=== PATIENT | male | born 1940 | race Caucasian/White ===

== ENCOUNTER 2017-04-05 09:49 | Day surgery (SDC) | payer MEDICARE ==
[~2017-04-05] VITALS: Ht 175.3 cm; Wt 94.5 kg
[2017-04-05] VITALS (8 sets, daily range): BP systolic 116–150; BP diastolic 74–89; PULSE 65–78; RESP 20; TEMP 97.6–97.7; O2SAT 96–98
[2017-04-05] MEDS ORDERED: SODIUM CHLOR 0.9% 1000 ML IV SCH (10:00)
[2017-04-05] MEDS ORDERED: CAPE1TAB2 PO (10:13)
[2017-04-05] MEDS ORDERED: LEVO125T4 PO (10:13)
[2017-04-05] MEDS ORDERED: AMLO5TAB2 PO (10:13)
[2017-04-05] MEDS ORDERED: VITA1000 PO (10:13)
[2017-04-05] MEDS ORDERED: METO25TA3 PO (10:13)
[2017-04-05] MEDS ORDERED: SIMV10TA PO (10:13)
[2017-04-05 10:45] LABS: AUTOMATED NEUTROPHIL # 3.5 TH/MM3 (1.8-7.7); BASOPHIL % 0.5 % (0.0-2.0); EOSINOPHIL # 0.1 TH/MM3 (0-0.4); EOSINOPHIL % 2.3 % (0.0-4.0); HEMATOCRIT 40.4 % (39.0-51.0); HEMO FLAGS DIFF FINAL; LYMPH % 28.1 % (9.0-44.0); LYMPHOCYTE # 1.7 TH/MM3 (1.0-4.8); MEAN CORPUSCULAR HEMOGLOBIN 31.1 PG (27.0-34.0); MEAN CORPUSCULAR HGB CONC 33.5 % (32.0-36.0); MONO % 10.3 % (0.0-8.0); NEUT % 58.8 % (16.0-70.0); PLATELET COUNT 141 TH/MM3 (150-450); RED BLOOD COUNT 4.35 MIL/MM3 (4.50-5.90); RED CELL DISTRIBUTION WIDTH 15.7 % (11.6-17.2)
[2017-04-05 11:16] LABS: APTT (PATIENT) 26.9 SEC (24.3-30.1); INTERNATIONAL NORMALIZED RATIO 0.9 RATIO
[2017-04-05] MEDS ORDERED: LIDOCAINE 1%/EPINEPHrine 1:100,000 SOLN 20 ML VIAL ONE (13:22)
[2017-04-05] MEDS ORDERED: MIDAZOLAM HCL 5 MG/5 ML VIAL ONE (13:29)
[2017-04-05] MEDS ORDERED: fentaNYL CITRATE 250 MCG/5 ML AMP ONE (13:29)
[2017-04-05] MEDS ORDERED: ceFAZolin 2 GM PREMIX 50 ML ONE (14:11)
--- NOTE | 2017-04-05 14:20 | PD.RAD ---
Post CT Procedure Prog Note Pre Procedure Diagnosis: (1) Metastases to the liver Post Procedure Diagnosis: (1) Metastases to the liver Procedure Date: Apr 05, 2017 Supervising Radiologist: Red Mejia Anesthesia: Conscious Sedation Plan of Activity Patient to Unit: ROPU Patient Condition: Good Additional Comments: placed fiducial makers neardominant mass in liver See PACS Report for procedural detail/treatment Red Mejia MD Apr 05, 2017 14:19
--- NOTE | 2017-04-05 14:48 | RADRPT ---
EXAM DATE/TIME: 04/05/2017 13:39 [facility] COMPARISON: No previous studies available for comparison. INDICATIONS : Liver mass. MEDICAL HISTORY : Carcinoma, colon. Kidney cancer. SURGICAL HISTORY : Colostomy bag. Left nephrectomy. ENCOUNTER: Initial ACUITY: 1 day PAIN SCORE: 0/10 LOCATION: Right liver. AREA EVALUATED: Right liver. FINDINGS: Ultrasound examination was performed for image localization and guidance for placement of fiducial ma rkers. Please see CT procedure report for details. CONCLUSION: Ultrasound examination for localization and guidance of fiducial marker placement in dominant mass in right lobe of the liver. Please see CT procedure report for details. Red Mejia MD on April 05, 2017 at 14:42 Board Certified Radiologist. This report was verified electronically.
[2017-04-05] MEDS ORDERED: HYDROmorphone HCL 2 MG TAB PO PRN (15:00)
--- NOTE | 2017-04-05 16:40 | RADRPT ---
EXAM DATE/TIME: 04/05/2017 14:04 [facility] COMPARISON: No previous studies available for comparison. INDICATIONS : History of metastatic liver disease with 2 nearly isodense lesions in segment 6 of the liver. Fiducia l marker placement for radiosurgery has been requested. Patient is status post prior nephrectomy with chronic stage liver renal disease precluding contrast administration. Patient also has a history of shrapnel injury to the eye precluding MRI examination. Ultrasound examination does demonstrate these lesions. SEDATION TIME: 30 minutes MEDICATION(S): 1.) 3 mg midazolam (Versed) IV 2.) 150 mcg fentanyl (Sublimaze) IV DEVICE(S): 1.) fiducial needle MEDICAL HISTORY : Renal cancer, metastatic colon cancer to the liver SURGICAL HISTORY : Nephrectomy ENCOUNTER: Initial ACUITY: 1 day PAIN SCORE: 0/10 LOCATION: Right lateral PROCEDURE: 1.) Conscious sedation with continuous EKG and oximetry monitoring. PROCEDURE : CT and ultrasound-guided fiducial marker placement The risks, benefits and alternatives to the procedure were explained and verbal and written consent w as obtained. Using automated exposure control and adjustment of the mA and/or kV according to patien t size, radiation dose was kept as low as reasonably achievable to obtain optimal diagnostic quality images. The site was prepped in sterile fashion. Full sterile technique was used, including cap, ma sk, sterile gloves and gown and a large sterile sheet. Hand hygiene and 2% chlorhexidine and/or beta dine/alcohol prep was utilized per protocol for cutaneous antisepsis. The skin and subcutaneous tiss ues were infiltrated with local anesthetic solution. DICOM format image data is available electronic ally for review and comparison. Ultrasound and CT guidance was utilized for this pre-procedure. The dominant 2 cm mass in segment 6 o f the liver was targeted. Fiducial markers were placed bracketing the anterior cephalad margin of the mass. This was confirmed with CT exam although again, overall evaluation was very limited due to the inability to administer contrast. The second smaller mass noted posteriorly in segment 6 is approxim ately 2.3 cm posterior to the most posterior marker. Postprocedure CT exam demonstrated no evidence o f hematoma or other complication. CONCLUSION: 1. CT and ultrasound-guided fiducial marker placement, as above. Red Mejia MD on April 05, 2017 at 16:26 Board Certified Radiologist. This report was verified electronically.
== END 2017-04-05 18:00 | disposition home or self-care (01) ==
LOC: HRAD 09:49 → HRIP 09:50 → HRAD 18:00
PROVIDERS: ATTEND Specialist
DX: C78.7 Secondary malignant neoplasm of liver and intrahepatic bile duct (principal); Z90.5 Acquired absence of kidney; E07.9 Disorder of thyroid, unspecified; Z93.3 Colostomy status; Z85.528 Personal history of other malignant neoplasm of kidney; Z85.038 Personal history of other malignant neoplasm of large intestine; Z01.818 Encounter for other preprocedural examination
CPT/HCPCS: 49411; 76705; 77012; 85025; 85610; 85730; 99152; 99153; J0690; J2250; J3010

== ENCOUNTER 2017-09-11 06:49 | Day surgery (SDC) | payer MEDICARE ==
[~2017-09-11] VITALS: Ht 175.3 cm; Wt 95.5 kg
[2017-09-11] VITALS (9 sets, daily range): BP systolic 124–146; BP diastolic 72–94; PULSE 60–69; RESP 18–20; TEMP 97.4–97.7; O2SAT 92–98
[~2017-09-11 06:49] MED LIST: AMLO5TAB2 PO; CAPE1TAB2 PO; LEVO125T4 PO; METO25TA3 PO; SIMV10TA PO; VITA1000 PO
[2017-09-11 07:52] LABS: APTT (PATIENT) 58.3 SEC (24.3-30.1); PROTHROMBIN TIME - PATIENT 10.2 SEC (9.8-11.6)
[2017-09-11] MEDS ORDERED: LIDOCAINE 1%/EPINEPHrine 1:100,000 SOLN 20 ML VIAL ONE (08:15)
[2017-09-11] MEDS ORDERED: IMPLANTED VASCULAR ACCESS DEVICE/PORT - SODIUM CHLORIDE FLUSH IV FLUSH SCH (08:30)
[2017-09-11] MEDS ORDERED: SODIUM CHLOR 0.9% 1000 ML IV SCH (08:30)
[2017-09-11] MEDS ORDERED: IMPLANTED VASCULAR ACCESS DEVICE/PORT - SODIUM CHLORIDE FLUSH PRN IV FLUSH (08:30)
[2017-09-11] MEDS ORDERED: MIDAZOLAM HCL 5 MG/5 ML VIAL ONE (09:06)
[2017-09-11] MEDS ORDERED: HYDROmorphone HCL 2 MG TAB PO PRN (10:00)
--- NOTE | 2017-09-11 10:44 | RADRPT ---
EXAM DATE/TIME: 09/11/2017 09:16 [facility] COMPARISON: US ABDOMEN - UPPER LIMITED, April 05, 2017, 13:39. INDICATIONS : Liver masses. Colon cancer. MEDICAL HISTORY : Liver masses. Colon cancer. Renal cancer. SURGICAL HISTORY : Partial colectomy. Left nephrectomy ENCOUNTER: Subsequent ACUITY: 4-6 months PAIN SCORE: 0/10 LOCATION: Liver. AREA EVALUATED: Liver. FINDINGS: Ultrasound guidance was utilized in conjunction with CT guidance for placement of a fiducial marker b etween the patient's known segment 2 hepatic masses. Ultrasound examination of the liver demonstrates multiple echogenic hepatic masses in the left lobe of the liver. CONCLUSION: 1. Ultrasound-guided placement of a fiducial marker between patient's known segment [address] Please see CT report for details. Red Mejia MD on September 11, 2017 at 10:40 Board Certified Radiologist. This report was verified electronically.
--- NOTE | 2017-09-11 10:48 | RADRPT ---
EXAM DATE/TIME: 09/11/2017 09:19 [facility] COMPARISON: CT GUIDED NEEDLE PLACEMENT, April 05, 2017, 14:04. INDICATIONS : History of metastatic or rectal CA with new masses in segment 2 of the liver. Fiducial marker placeme nt has been requested between these masses for radiation therapy. SEDATION TIME: 40 minutes MEDICATION(S): 1.) 3 mg midazolam (Versed) IV 2.) 150 mcg fentanyl (Sublimaze) IV DEVICE(S): 1.) fiducial needle MEDICAL HISTORY : Carcinoma, colon. Renal cell carcinoma. SURGICAL HISTORY : partial colectomy, left nephrectomy ENCOUNTER: Initial ACUITY: 1 day PAIN SCORE: 0/10 LOCATION: upper quadrant PROCEDURE: PROCEDURE : 1. CT and ultrasound guided placement of a fiducial marker in segment 2 of the liver. 2. Conscious sedation with continuous EKG and oximetry monitoring. The risks, benefits and alternatives to the procedure were explained and verbal and written consent w as obtained. Using automated exposure control and adjustment of the mA and/or kV according to patien t size, radiation dose was kept as low as reasonably achievable to obtain optimal diagnostic quality images. The site was prepped in sterile fashion. Full sterile technique was used, including cap, ma sk, sterile gloves and gown and a large sterile sheet. Hand hygiene and 2% chlorhexidine and/or beta dine/alcohol prep was utilized per protocol for cutaneous antisepsis. The skin and subcutaneous tiss ues were infiltrated with local anesthetic solution. DICOM format image data is available electronic ally for review and comparison. A single fiducial marker was placed utilizing a 20 gauge introducer needle between patient's known se gment [address] and ultrasound guidance. Postprocedural CT exam demonstrates no evidence of hematoma with well-positioned marker. CONCLUSION: 1. Technically successful CT and ultrasound guided placement of single fiducial marker in segment 2 of the liver, as above. Red Mejia MD on September 11, 2017 at 10:41 Board Certified Radiologist. This report was verified electronically.
== END 2017-09-11 13:25 | disposition home or self-care (01) ==
LOC: HRAD 06:49 → HRIP 06:50 → HRAD 13:25
PROVIDERS: ATTEND Specialist
DX: R16.0 Hepatomegaly, not elsewhere classified (principal); C18.9 Malignant neoplasm of colon, unspecified; Z85.528 Personal history of other malignant neoplasm of kidney; I10 Essential (primary) hypertension; R73.03 Prediabetes
CPT/HCPCS: 49411; 76705; 77012; 85610; 85730; 99152; 99153; J2250; J3010; J7030

== ENCOUNTER 2017-09-19 13:53 | Day surgery (SDC) | payer MEDICARE ==
[2017-09-19 14:10] VITALS: BP 143/90; PULSE 96; RESP 20; TEMP 97.6; O2SAT 97
== END 2017-09-19 16:16 | disposition home or self-care (01) ==
LOC: HROP 13:53 → HRIP 13:57 → HROP 16:16
PROVIDERS: ATTEND Specialist
DX: C78.7 Secondary malignant neoplasm of liver and intrahepatic bile duct (principal); Z85.038 Personal history of other malignant neoplasm of large intestine

== ENCOUNTER 2017-09-20 13:41 | Day surgery (SDC) | payer MEDICARE ==
[2017-09-20 14:02] VITALS: BP 140/76; PULSE 69; RESP 20; TEMP 97.4; O2SAT 99
--- NOTE | 2017-09-20 16:06 | RADRPT ---
EXAM DATE/TIME: 09/20/2017 00:00 [facility] COMPARISON : No previous studies available for comparison. INDICATIONS : CONSULT FOR Y-90 OBJECTIVE: Temperature: 97.4 Heart Rate: 69 Blood Pressure: 140/76 Respiratory: 20 Oximetry: 99 PNEUMONIA VACCINE: YES HISTORY OF PRESENT ILLNESS: 76-year-old male with history of metastatic colorectal CA to the liver status post multiple lines of chemotherapy with radiosurgery to segment 6 of the liver. Patient responded well to radiosurgery but has since developed numerous additional metastatic lesions. Therefore, patient presents for evaluatio n of possible Y90 embolization. Patient has a history of renal cell carcinoma status post nephrectomy with solitary kidney and chronic azotemia with creatinine ranging in the 2.1-2.6 range. He also has a history of radiographic documented orbital shrapnel and is therefore not a candidate for MRI exam. The newly diagnosed lesions in the liver were noted during fiducial placement for targeting of new le sions in segment 2 of the liver noted on recent PET/CT exam. He is currently on Erbitux and Xeloda. H e is essentially without complaints. PAST MEDICAL HISTORY : 1. Carcinoma, colon. 2. Hypothyroidism. 3. Hypertension. 4. Renal cell carcinoma. PAST SURGICAL HISTORY : 1. LEFT NEPHRECTOMY 2. FUDICIAL LIVER MARKINGS SOCIAL HISTORY : No alcohol use. Tobacco;none. ALLERGIES: Iodinaetd contrastONE KIDNEY MEDICATIONS: 1. AMLODIPINE 5 mg q.d. 2. CAPECITABINE 1000 mg b.i.d. 3. COMPAZINE 10 mg prn 4. DIPHENOXYLATE-ATROPINE 2 mg prn 5. ERBITUX 6. LEVOTHYROXINE 125 mcg q.d. 7. Lopressor (Metoprolol)25 mg b.i.d. 8. Zocor (Simvastatin)10 mg q.d. 9. VITAMIN D 1000 units q.d. 10. XELODA 500 mg q.d. PHYSICAL EXAMINATION: General: No acute distress Abdomen: Soft, nontender nondistended. IMAGING STUDIES: Patient reports ultrasound examination of the abdomen which was performed today in [place]. The ages and report are not available at this time. Most recent PET/CT examination demonstrated lesions i n segment 2 of the liver. Ultrasound examination on 09/11/2017 demonstrated multiple additional bilob ar lesions. LFTs performed today also at [facility] are not available for review. ASSESSMENT: 76-year-old male with liver centric metastatic colorectal CA and interval progression of disease on s alvage chemotherapy, now with bilobar multifocal metastatic disease. He has an excellent functional s tatus with suspected intact liver function. He is a good candidate for locoregional Y90 embolization. Extensive discussion regarding risks and benefits of locoregional therapy and Y90 embolization. All q uestions were answered. PLAN: Tentative plan for Y90 embolization. We will need to obtain recent labs and ultrasound reports. 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 Patient will likely require pretreatment with sodium bicarbonate a nd acetylcysteine. TIME SPENT: 20 minutes. Red Mejia MD on September 20, 2017 at 15:19 Board Certified Radiologist. This report was verified electronically.
== END 2017-09-20 14:40 | disposition home or self-care (01) ==
LOC: HROP 13:41 → HRIP 13:45 → HROP 14:40
PROVIDERS: ATTEND Specialist
DX: C78.7 Secondary malignant neoplasm of liver and intrahepatic bile duct (principal); Z85.038 Personal history of other malignant neoplasm of large intestine

== ENCOUNTER 2017-10-03 06:50 | Day surgery (SDC) | payer MEDICARE ==
[~2017-10-03] VITALS: Ht 175.3 cm; Wt 80.0 kg
[2017-10-03 07:07] VITALS: BP 144/96; PULSE 73; RESP 20; TEMP 98.1; O2SAT 97
[2017-10-03] MEDS ORDERED: DIPH2.5T14 PO (07:37)
[2017-10-03] MEDS ORDERED: [UNRECOGNIZED DRUG - CODE] (07:37)
[2017-10-03 07:56] LABS: AUTOMATED NEUTROPHIL # 4.4 TH/MM3 (1.8-7.7); BASOPHIL % 0.6 % (0.0-2.0); EOSINOPHIL # 0.1 TH/MM3 (0-0.4); EOSINOPHIL % 2.2 % (0.0-4.0); HEMATOCRIT 39.1 % (39.0-51.0); HEMOGLOBIN 13.4 GM/DL (13.0-17.0); LYMPH % 14.3 % (9.0-44.0); LYMPHOCYTE # 0.9 TH/MM3 (1.0-4.8); MEAN CORPUSCULAR HEMOGLOBIN 32.3 PG (27.0-34.0); MEAN CORPUSCULAR HGB CONC 34.4 % (32.0-36.0); MEAN PLATELET VOLUME 9.3 FL (7.0-11.0); MONOCYTE # 0.5 TH/MM3 (0-0.9); NEUT % 73.9 % (16.0-70.0); PLATELET COUNT 137 TH/MM3 (150-450); RED BLOOD COUNT 4.16 MIL/MM3 (4.50-5.90); RED CELL DISTRIBUTION WIDTH 14.5 % (11.6-17.2)
[2017-10-03] MEDS ORDERED: SODIUM CHLORIDE FLUSH PRN IV FLUSH (08:00)
[2017-10-03] MEDS ORDERED: SODIUM CHLOR 0.9% 1000 ML INJ 1,000 ML IV SCH (08:00)
[2017-10-03] MEDS ORDERED: SODIUM BICARBONATE 154 MEQ/1000 ML NS IV SCH ×6 (08:00)
[2017-10-03 08:12] LABS: PROTHROMBIN TIME - PATIENT 9.9 SEC (9.8-11.6)
[2017-10-03 08:15] LABS: BICARBONATE 22.5 MEQ/L (21.0-32.0); CALCIUM 8.6 MG/DL (8.5-10.1); CREATININE 2.46 MG/DL (0.60-1.30)
[2017-10-03 08:44] LABS: ALBUMIN 3.4 GM/DL (3.4-5.0); DIRECT BILIRUBIN ADULT 0.2 MG/DL (0.0-0.2)
[2017-10-03 08:45] LABS: INDIRECT BILIRUBIN 0.3 MG/DL (0.0-0.8); TOTAL BILIRUBIN ADULT 0.5 MG/DL (0.2-1.0)
[2017-10-03] MEDS ORDERED: SODIUM CHLORIDE FLUSH BID IV FLUSH SCH (09:00)
[2017-10-03] MEDS ORDERED: MIDAZOLAM HCL 2 MG/2 ML VIAL ONE ×2 (09:58→10:25)
[2017-10-03] MEDS ORDERED: VERAPAMIL HCL 5 MG/2 ML VIAL ONE (09:58)
[2017-10-03] MEDS ORDERED: SODIUM CHLORIDE 0.9% INJ 10 ML ONE (09:58)
[2017-10-03] MEDS ORDERED: HEPARIN SODIUM - IV 10,000 UNITS/10 ML VIAL ONE (09:58)
[2017-10-03] MEDS ORDERED: IOHEXOL 350 MG/ML 50 ML BTL (for RAD DIAG) OTHER ONE (11:50)
[2017-10-03 12:30] VITALS: BP 157/91; PULSE 61; RESP 16; RESP 18; TEMP 98.4; O2SAT 97
[2017-10-03 12:45] VITALS: BP 149/87; PULSE 61; RESP 16; O2SAT 97
[2017-10-03] MEDS ORDERED: oxyCODONE/ACETAMINOPHEN 5 MG/325 MG TAB PO PRN (12:45)
--- NOTE | 2017-10-03 12:46 | PD.RAD ---
Post Procedure Progress Note Pre Procedure Diagnosis: (1) Metastases to the liver Post Procedure Diagnosis: (1) Metastases to the liver Procedure Date: Oct 03, 2017 Supervising Radiologist: Red Mejia Proceduralist/Assist: Nori Dempsey RT(R)(), Clara Zamarripa RT(R) Anesthesia: Conscious Sedation Plan of Activity Patient to Unit: ROPU Patient Condition: Good See PACS Report for procedural detail/treatment Red Mejia MD Oct 03, 2017 12:46
[2017-10-03 13:00] VITALS: BP 132/85; PULSE 68; RESP 16; O2SAT 97
[2017-10-03 13:15] VITALS: BP 128/75; PULSE 72; RESP 16; O2SAT 97
[2017-10-03 13:30] VITALS: BP 123/86; PULSE 68; RESP 16; O2SAT 97
--- NOTE | 2017-10-03 15:26 | RADRPT ---
EXAM DATE/TIME: 10/03/2017 10:08 COMPARISON: CT GUIDED NEEDLE PLACEMENT, April 05, 2017, 14:04. INDICATIONS : 76-year-old male with history of metastatic rectal CA to liver status post multipl e lines of chemotherapy and radiosurgery to segment 6 of the liver with interval progression of disea se. Patient presents Y-90 mapping. Patient has history of chronic renal insufficiency with solitary k idney. Therefore, procedure to be performed with minimal contrast. MEDICAL HISTORY : HTN Diabetes Metastatic colorectal cancer Liver cancer Thyroid disease SURGICAL HISTORY : Shrapnel removed Colostomy Lt. Nephrectomy ENCOUNTER: Initial ACUITY: 3 months PAIN SCORE: 7/10 LOCATION: mid back FLUORO TIME: 25.9 minutes IMAGE SERIES: 6 ACCESS SITE: Left Radial artery SEDATION TIME: 105 minutes CONTRAST: 1.) 25 cc Omnipaque (iohexol) 350 MEDICATION(S): 1.) 6 mg midazolam (Versed) IV 2.) 300 mcg fentanyl (Sublimaze) IV 3.) 4 mg Verapamil IART 4.) 400 mcg Nitroglycerin IART DEVICE(S): 1.) Right gastric artery [id number] .018 Interlock embolic coil(s) 2.) gastroduodenal artery [id number] .018 Interlock embolic coil(s) Procedures performed: 1. Ultrasound guided left radial artery access 2. Selective catheter placement in the celiac artery was selected angiography 3. Subselective catheter placement in the common hepatic artery which subselective angiography 4. Subselective catheter placement in the gastroduodenal artery with subsequent angiography 5. Coil embolization of the gastroduodenal artery 6. Subselective catheter placement in the right gastric artery which subselective angiography 7. Coil embolization of the right gastric artery 8. Subselective catheter placement in the right hepatic artery with subselective intra-arterial inje ction of technetium 99m MAA 9. Subselective catheter placement in the intermediate hepatic artery with subselective intra-arteri al injection of technetium 99m MAA 10. Subselective catheterization and the left hepatic artery which subselective intra-arterial inject ion of technetium 99m MAA 11. Conscious sedation with continuous EKG and oximetry monitoring. FINDINGS: The risks, benefits and alternatives to the procedure were explained and verbal and written consent w as obtained. Using automated exposure control and adjustment of the mA and/or kV according to patient size, radiat ion dose was kept as low as reasonably achievable to obtain optimal diagnostic quality images. The site was pr epped in sterile fashion. Full sterile technique was used, including cap, mask, sterile gloves and gown and a large sterile sheet. Hand hygiene and 2% chlorhexidine and/or betadine/alcohol prep was utilized per protocol for c utaneous antisepsis. The skin and subcutaneous tissues were infiltrated with local anesthetic. Patient was placed supine on angiographic table. Ultrasound evaluation of the left wrist demonstrate a patent left radial artery. A Barbeau test was also performed and demonstrated adequate collateral f low to the hand. Micropuncture needle was then advanced into the radial artery under direct ultrasoun d guidance and subsequently exchanged for a slim 4 Lebanese sheath. 4 Lebanese Ybarra catheter was the n advanced into the celiac origin and angiography was performed. This demonstrated standard proximal celiac anatomy with variant hepatic artery anatomy. There is an intermediate hepatic artery. Renegade microcatheter was then advanced into the gastroduodenal artery and angiography performed confirming position. The gastroduodenal artery was subsequently embolized with interlock coils and small amount of Gelfoam. Followup angiography demonstrated stasis of flow. Catheter was then repositioned into the right gastric artery and angiography was performed confirming position. The right gastric artery wit h subsequent embolized with interlock coils. Followup angiography demonstrated stasis of flow. Next, catheter was advanced into the right hepatic artery and approximately 1/3 of solution containing 4 mC i of technetium 99m MAA was injected into the right hepatic artery. Catheter was subsequently reposit ioned into the inter-mediate hepatic artery and a another 1/3 of the solution was injected. Catheter was then repositioned into the left hepatic artery and a final 1/3 of the solution was injected. Wire s and catheters were then removed. Radial artery sheath was then removed and hemostasis obtained with a radial compression device. Patient tolerated the procedure well and there were no immediate post procedure complications. CONCLUSION: 1. Standard celiac anatomy with variant hepatic artery secondary to intermediate hepatic artery branc h. 2. Technically successful coil embolization of the GDA and right gastric arteries. 3. Split dose intra-arterial administration of technetium 99m MAA for the performance of Y90 mapping. Plan: Y90 embolization of the right hepatic artery approximately 1-2 weeks. Red Mejia MD on October 03, 2017 at 14:59 Board Certified Radiologist. This report was verified electronically.
[2017-10-03] MEDS ORDERED: SODIUM CHLORIDE 0.9% FLUSH 10 ML FLUSH IV FLUSH PRN (15:30)
--- NOTE | 2017-10-03 16:42 | RADRPT ---
EXAM DATE/TIME: 10/03/2017 12:16 [facility] COMPARISON: No previous studies available for comparison. INDICATIONS : Metastatic colorectal cancer. DOSE: 4.0 mCi Tc99m MAA Intraarterial IMAGING: SPECT/CT imaging with fusion was performed. RADIATION DOSE: 6.35 CTDIvol (mGy) MEDICAL HISTORY : Carcinoma, colon. Hypertension. Renal cell carcinoma. SURGICAL HISTORY : Nephrectomy, left. ENCOUNTER: [facility] ACUITY: 7 - 11 months PAIN SCALE: 0/10 LOCATION: Bilateral lower quadrant COMPARISON: No previous studies obtainable for comparison. FINDINGS: Activity is confined to the liver. No evidence for extrahepatic activity. Lung shunt is calculated at 2.2%. CONCLUSION: 1. No evidence for extra hepatic activity. 2. 2.2% lung shunt. Red Mejia MD on October 03, 2017 at 16:33 Board Certified Radiologist. This report was verified electronically.
== END 2017-10-03 17:10 | disposition home or self-care (01) ==
LOC: HROP 06:50 → HRIP 06:51 → HROP 17:10
PROVIDERS: ATTEND Specialist
DX: C18.9 Malignant neoplasm of colon, unspecified (principal); C78.7 Secondary malignant neoplasm of liver and intrahepatic bile duct; I12.9 Hypertensive chronic kidney disease with stage 1 through stage 4 chronic kidney disease, or unspecified chronic kidney disease; E11.22 Type 2 diabetes mellitus with diabetic chronic kidney disease; N18.9 Chronic kidney disease, unspecified; E07.9 Disorder of thyroid, unspecified; Z85.528 Personal history of other malignant neoplasm of kidney
CPT/HCPCS: 36247; 36248; 37243; 75726; 75774; 78802; 80048; 80076; 85025; 85610; 85730; 99152; 99153; A9540; C1769; C1887; C1894; J2250; J3010; Q9967; J1644

== ENCOUNTER 2017-10-14 07:26 | Day surgery (SDC) | payer MEDICARE ==
[2017-10-14] VITALS (10 sets, daily range): BP systolic 95–147; BP diastolic 52–88; PULSE 64–80; RESP 16–20; TEMP 98.1–98.4; O2SAT 93–99
[~2017-10-14] VITALS: Ht 175.3 cm; Wt 97.3 kg
[~2017-10-14 07:26] MED LIST changes: +DIPH2.5T14 PO; +[UNRECOGNIZED DRUG - CODE]
[2017-10-14] MEDS ORDERED: IODIXANOL 320 MG/ML 50 ML VIAL (for RAD SPEC) I-ARTERIAL ONE (07:27)
[2017-10-14] MEDS ORDERED: NITROGLYCERIN 1000 MCG/5 ML VIAL OTHER ONE (07:27)
[2017-10-14] MEDS ORDERED: ceFAZolin 1,000 MG/NS 100 ML IV ONE ×2 (08:30)
[2017-10-14] MEDS ORDERED: SODIUM CHLORIDE 0.9% FLUSH 10 ML FLUSH IV FLUSH PRN ×3 (08:30→10:30)
[2017-10-14] MEDS ORDERED: ONDANSETRON HCL 4 MG/2 ML VIAL IV PUSH ONE (08:30)
[2017-10-14] MEDS ORDERED: SODIUM CHLOR 0.9% 1000 ML INJ 1,000 ML IV SCH (08:30)
[2017-10-14] MEDS ORDERED: DEXAMETHASONE SOD PHOS 20 MG/5 ML VIAL IV ONE (08:30)
[2017-10-14 09:07] LABS: ALBUMIN 3.3 GM/DL (3.4-5.0); BLOOD UREA NITROGEN 26 MG/DL (7-18); CALCIUM 8.8 MG/DL (8.5-10.1); CREATININE 2.45 MG/DL (0.60-1.30); GLOMERULAR FILTRATION RATE 26 ML/MIN (>89); GLUCOSE,RANDOM 130 MG/DL (74-106); TOTAL PROTEIN 7.5 GM/DL (6.4-8.2)
[2017-10-14 09:08] LABS: ALKALINE PHOSPHATASE 134 U/L (45-117); ALT (GPT) 23 U/L (12-78); AST (GOT) 38 U/L (15-37); BICARBONATE 24.7 MEQ/L (21.0-32.0); CHLORIDE 111 MEQ/L (98-107); SODIUM (NA) 143 MEQ/L (136-145); TOTAL BILIRUBIN ADULT 0.4 MG/DL (0.2-1.0)
[2017-10-14] MEDS ORDERED: PANTOPRAZOLE SODIUM 40 MG VIAL IV PUSH ONE (10:00)
[2017-10-14] MEDS ORDERED: SODIUM BICARBONATE 154 MEQ/1000 ML NS IV SCH ×2 (11:00)
[2017-10-14] MEDS ORDERED: fentaNYL CITRATE 250 MCG/5 ML AMP ONE (11:02)
[2017-10-14] MEDS ORDERED: MIDAZOLAM HCL 2 MG/2 ML VIAL ONE ×2 (11:02)
[2017-10-14] MEDS ORDERED: VERAPAMIL HCL 5 MG/2 ML VIAL ONE (11:03)
--- NOTE | 2017-10-14 13:50 | RADRPT ---
EXAM DATE/TIME: 10/14/2017 11:39 COMPARISON: No previous studies available for comparison. INDICATIONS : 76-year-old male with history of metastatic rectal CA to liver status post multipl e lines of chemotherapy and radiosurgery to segment 6 of the liver with interval progression of disease . Patient presents for Y-90 procedure. Patient has history of chronic renal insufficiency with solitary kidney. Therefore, procedure to be performed with minimal contrast. MEDICAL HISTORY : Colon carcinoma Hypothyroidism Hypertension Renal cell carcinoma SURGICAL HISTORY : Left nephrectomy Fudicial liver markings ENCOUNTER: Subsequent ACUITY: 1 month PAIN SCORE: 0/10 FLUORO TIME: 6.7 minutes IMAGE SERIES: 4 ACCESS SITE: Left Radial artery SEDATION TIME: 45 minutes CONTRAST: 1.) 15 cc Visipaque (iodixanol) MEDICATION(S): 1.) 3 mg midazolam (Versed) IV 2.) 150 mcg fentanyl (Sublimaze) IV DEVICE(S): 1.) hepatic artery y-90 microspheres PROCEDURES PERFORMED: 1. Ultrasound guided left radial artery access 2. Conscious sedation 3. Selective catheter placement in the common hepatic artery with selective angiography 4. Subselective catheter placement in the left hepatic artery which subselective angiography 5. Y90 embolization of the left hepatic artery DISCUSSION: Monitored moderate conscious sedation was provided for this procedure with continued monitoring of pa tient consciousness and physiologic status provided by interventional radiology nurse throughout the procedure and documented. Patient was placed supine on the angiographic table. Ultrasound evaluation of the left radial artery demonstrated the artery to be patent. Single image was obtained and placed in PACS archive. Micropunc ture needle was advanced into the left radial artery under direct ultrasound guidance and subsequentl y exchanged for a slim 5 Burundian sheath. The 4 Burundian Panchito catheter was then advanced into the hepati c artery and angiography was performed. Microcatheter was then advanced into the origin of the left h epatic artery and angiography was repeated. This confirmed the findings. The SIR-spheres acrylic delivery box (V-vial) and delivery set were prepped in standard fashion. The labels on the tubing and needles corresponding to carpenter mold's designations. The dose of SIR-sphere s to be delivered was determined by taking into account the patient's body surface area, tumor burden , liver function test, tumor burden, performance status, and lung shunting. Next, multiple small aliq uots of SIR-spheres were delivered intra-arterially to the hepatic masses with close fluoroscopic mon itoring to ensure forward flow in the vessel during the administration of the microspheres. Followup angiogram demonstrated persistent forward flow. Next, the microcatheter was withdrawn into the angiographic catheter, which was then removed from the sheath, and catheter tip grasped with multiple layers of sterile gauze. The angiographic catheter, m icrocatheter, V- vial, and all the tubing and needles associated with the delivery set were placed in to a container provided by radiation safety. Hemostasis was then obtained by placement of a radial compression device. Patient tolerated the proce dure well. FINDINGS: There was successful delivery of the radioactive microspheres to the hepatic artery. The microcathete r was positioned in the hepatic artery during the delivery of the microspheres. Throughout the proced ure, antegrade flow is maintained. No reflux was demonstrated fluoroscopically. Visually, entire dose within the V-vial was delivered to the patient. No leaks or spills of the radioactive material where identified during or after the procedure. CONCLUSION: 1. Technically successful Y-90 radioembolization of the left hepatic arteries, as above. Red Mejia MD on October 14, 2017 at 13:32 Board Certified Radiologist. This report was verified electronically.
--- NOTE | 2017-10-14 14:22 | RADRPT ---
EXAM DATE/TIME: 10/14/2017 12:52 [facility] COMPARISON: No previous studies available for comparison. PRIOR BONE SCANS: No correlative bone scan available for comparison. INDICATIONS : Colon cancer. DOSE: 26.4 mCi Yttrium-90 Intraarterial MEDICAL HISTORY : Carcinoma, colon. Diabetes mellitus type 2. Hypertension. SURGICAL HISTORY : Colostomy bag. ENCOUNTER: Initial ACUITY: 1 day PAIN SCALE: 0/10 LOCATION: Abdomen. COMPARISON: No previous studies obtainable for comparison. FINDINGS: Immediate post procedure bremsstrahlung scan was performed. Left hepatic artery injected activity is confined to the left lobe of the liver. No evidence for extrahepatic activity is noted. No significan t lung uptake. CONCLUSION: 1. Left hepatic artery yttrium-90 injection confined to the left lobe liver. No extrahepatic or signi ficant lung activity. Red Mejia MD on October 14, 2017 at 14:03 Board Certified Radiologist. This report was verified electronically.
--- NOTE | 2017-10-14 14:34 | PD.RAD ---
Post Procedure Progress Note Pre Procedure Diagnosis: (1) Metastases to the liver Post Procedure Diagnosis: (1) Metastases to the liver Procedure Date: Oct 14, 2017 Supervising Radiologist: Red Mejia Proceduralist/Assist: Emily Haley, RT(R), Clara Zamarripa, RT(R) Anesthesia: Conscious Sedation Plan of Activity Patient to Unit: ROPU Patient Condition: Good See PACS Report for procedural detail/treatment Red Mejia MD Oct 14, 2017 14:34
== END 2017-10-14 17:10 | disposition home or self-care (01) ==
LOC: HROP 07:26 → HRIP 07:27 → HROP 17:10
PROVIDERS: ATTEND Specialist
DX: C78.7 Secondary malignant neoplasm of liver and intrahepatic bile duct (principal); C20 Malignant neoplasm of rectum; E03.9 Hypothyroidism, unspecified; E11.22 Type 2 diabetes mellitus with diabetic chronic kidney disease; I12.9 Hypertensive chronic kidney disease with stage 1 through stage 4 chronic kidney disease, or unspecified chronic kidney disease; N18.9 Chronic kidney disease, unspecified; Z85.528 Personal history of other malignant neoplasm of kidney; Z92.21 Personal history of antineoplastic chemotherapy
CPT/HCPCS: 36247; 37243; 75726; 75774; 76937; 77300; 77370; 78201; 79445; 80053; 99152; 99153; C1769; C1887; C1894; C2616; C9113; J1100; J1642; J2250; J2405; J3010; J7030; Q9967

== ENCOUNTER 2017-10-21 13:08 | Day surgery (SDC) | payer MEDICARE ==
[2017-10-21 13:27] VITALS: BP 122/73; PULSE 80; RESP 20; TEMP 97.8; O2SAT 97
[2017-10-21 13:57] LABS: ALKALINE PHOSPHATASE 131 U/L (45-117); TOTAL BILIRUBIN ADULT 0.9 MG/DL (0.2-1.0); TOTAL PROTEIN 7.5 GM/DL (6.4-8.2)
[2017-10-21 14:03] LABS: ALBUMIN 3.3 GM/DL (3.4-5.0); ALT (GPT) 38 U/L (12-78); AST (GOT) 51 U/L (15-37); BICARBONATE 16.3 MEQ/L (21.0-32.0); BLOOD UREA NITROGEN 52 MG/DL (7-18); CALCIUM 8.8 MG/DL (8.5-10.1); CHLORIDE 109 MEQ/L (98-107); CREATININE 2.87 MG/DL (0.60-1.30); GLOMERULAR FILTRATION RATE 22 ML/MIN (>89); GLUCOSE,RANDOM 161 MG/DL (74-106); SODIUM (NA) 138 MEQ/L (136-145)
--- NOTE | 2017-10-22 07:37 | RADRPT ---
EXAM DATE/TIME: 10/21/2017 00:00 OBJECTIVE: Temperature: 97.5 Heart Rate: 80 Blood Pressure: 122/73 Respiratory: 20 Oximetry: 97 HISTORY OF PRESENT ILLNESS: 76-year-old male postop day #7 status post left lobe yttrium-90 emboliza tion for metastatic carcinoma. He has no major complaints. However, he notes recent bout of diarrhea which reportedly has been an intermittent problem since his partial colectomy. A CMP performed on tod ay's examination demonstrates stable intact liver function. Creatinine is slightly elevated from virginie ent's baseline chronic renal insufficiency in a prerenal pattern. Therefore, patient was hydrated wit h IV fluids during this visit. Tentative plan for radioembolization of the right hepatic lobe in appr oximately 2-3 weeks. Red Mejia MD on October 22, 2017 at 7:29 Board Certified Radiologist. This report was verified electronically.
== END 2017-10-21 16:14 | disposition home or self-care (01) ==
LOC: HROP 13:08 → HRIP 13:13 → HROP 16:14
PROVIDERS: ATTEND Specialist
DX: C78.7 Secondary malignant neoplasm of liver and intrahepatic bile duct (principal); C18.9 Malignant neoplasm of colon, unspecified; C20 Malignant neoplasm of rectum; Z98.890 Other specified postprocedural states
CPT/HCPCS: 80053; 96360

== ENCOUNTER 2017-11-06 06:42 | Day surgery (SDC) | payer MEDICARE ==
[2017-11-06] VITALS (7 sets, daily range): BP systolic 100–142; BP diastolic 56–79; PULSE 59–74; RESP 18–20; TEMP 97.8; O2SAT 96–100
[~2017-11-06] VITALS: Ht 175.3 cm; Wt 97.0 kg
[2017-11-06] MEDS ORDERED: NITROGLYCERIN 1000 MCG/5 ML VIAL OTHER ONE (06:43)
[2017-11-06] MEDS ORDERED: SODIUM CHLORIDE 0.9% FLUSH 10 ML FLUSH IV FLUSH PRN (07:30)
[2017-11-06] MEDS ORDERED: SODIUM CHLOR 0.9% 1000 ML INJ 1,000 ML IV SCH (07:30)
[2017-11-06 07:43] LABS: AUTOMATED NEUTROPHIL # 5.7 TH/MM3 (1.8-7.7); BASOPHIL % 0.3 % (0.0-2.0); EOSINOPHIL # 0.1 TH/MM3 (0-0.4); EOSINOPHIL % 0.8 % (0.0-4.0); HEMATOCRIT 32.1 % (39.0-51.0); HEMOGLOBIN 10.9 GM/DL (13.0-17.0); LYMPHOCYTE # 0.5 TH/MM3 (1.0-4.8); MEAN CELL VOLUME 90.3 FL (80.0-100.0); MEAN CORPUSCULAR HEMOGLOBIN 30.6 PG (27.0-34.0); MEAN CORPUSCULAR HGB CONC 33.9 % (32.0-36.0); MEAN PLATELET VOLUME 8.6 FL (7.0-11.0); MONO % 8.4 % (0.0-8.0); MONOCYTE # 0.6 TH/MM3 (0-0.9); NEUT % 82.5 % (16.0-70.0); PLATELET COUNT 163 TH/MM3 (150-450); RED BLOOD COUNT 3.56 MIL/MM3 (4.50-5.90); RED CELL DISTRIBUTION WIDTH 14.3 % (11.6-17.2); WHITE BLOOD COUNT 6.8 TH/MM3 (4.0-11.0)
[2017-11-06 07:53] LABS: PROTHROMBIN TIME - PATIENT 10.1 SEC (9.8-11.6)
[2017-11-06 08:10] LABS: ALBUMIN 2.7 GM/DL (3.4-5.0); ALT (GPT) 23 U/L (12-78); AST (GOT) 47 U/L (15-37); BICARBONATE 23.6 MEQ/L (21.0-32.0); BLOOD UREA NITROGEN 27 MG/DL (7-18); CALCIUM 8.6 MG/DL (8.5-10.1); CHLORIDE 110 MEQ/L (98-107); CREATININE 2.44 MG/DL (0.60-1.30); GLOMERULAR FILTRATION RATE 26 ML/MIN (>89); GLUCOSE,RANDOM 121 MG/DL (74-106); SODIUM (NA) 141 MEQ/L (136-145)
[2017-11-06 08:13] LABS: ALKALINE PHOSPHATASE 147 U/L (45-117); TOTAL BILIRUBIN ADULT 0.4 MG/DL (0.2-1.0); TOTAL PROTEIN 6.6 GM/DL (6.4-8.2)
[2017-11-06] MEDS ORDERED: DEXAMETHASONE INJ 20 MG in SODIUM CHLORIDE 0.9% INJ 50 ML IV SCH (08:15)
[2017-11-06] MEDS: PANTOPRAZOLE SODIUM 40 MG VIAL IV SCH ×3 (08:36→13:03)
[2017-11-06] MEDS: ONDANSETRON HCL 4 MG/2 ML VIAL IV SCH ×2 (08:37→13:03)
[2017-11-06] MEDS ORDERED: fentaNYL CITRATE 250 MCG/5 ML AMP ONE (08:52)
[2017-11-06] MEDS ORDERED: MIDAZOLAM HCL 2 MG/2 ML VIAL ONE ×3 (08:52→10:48)
[2017-11-06] MEDS ORDERED: VERAPAMIL HCL 5 MG/2 ML VIAL ONE (08:59)
[2017-11-06] MEDS ORDERED: SODIUM BICARBONATE 154 MEQ/1000 ML NS IV SCH ×2 (09:00)
--- NOTE | 2017-11-06 11:34 | PD.RAD ---
Post Procedure Progress Note Pre Procedure Diagnosis: (1) Metastases to the liver Post Procedure Diagnosis: (1) Metastases to the liver Procedure Date: Nov 06, 2017 Supervising Radiologist: Red Mejia Anesthesia: Conscious Sedation Plan of Activity Patient to Unit: ROPU Patient Condition: Good See PACS Report for procedural detail/treatment Red Mejia MD Nov 06, 2017 11:34
--- NOTE | 2017-11-06 16:35 | RADRPT ---
EXAM DATE/TIME: 11/06/2017 09:20 COMPARISON: INVASIVE RADIOLOGY CONSULT, October 21, 2017, 0:00. ANGIOGRAM, HEPATIC ARTERY, October 14, 2017, 0:0 0. TRANSCATH, IV OCCL HEPATIC Y90, October 14, 2017, 11:39. INDICATIONS : 76-year-old male with history of metastatic colorectal CA to liver status post multiple lines of chem otherapy and radiosurgery to segment 6 of the liver with interval progression of disease. Patient pre sents for right Y-90 procedure. Patient has history of chronic renal insufficiency with solitary kidn ey. Therefore, procedure to be performed with minimal contrast. MEDICAL HISTORY : Colon carcinoma Hypothyroidism Hypertension Renal cell carcinoma SURGICAL HISTORY : Left nephrectomy Fudicial liver markings ENCOUNTER: Subsequent ACUITY: 1 year PAIN SCORE: 0/10 FLUORO TIME: 19.9 minutes IMAGE SERIES: 6 ACCESS SITE: Left Radial artery SEDATION TIME: 105 minutes CONTRAST: 1.) 20 cc Visipaque (iodixanol) MEDICATION(S): 1.) 6 mg midazolam (Versed) IV 2.) 250 mcg fentanyl (Sublimaze) IV 1.) hepatic artery y-90 microspheres Procedures performed: 1. Conscious sedation 2. Ultrasound-guided left radial artery access 3. Subselective catheter placement in the intermediate hepatic artery with subselective angiography 4. Suppurative catheter placement in the right hepatic artery with subselective angiography 5. Split dose Y90 embolization of the intermediate and right hepatic arteries DISCUSSION: Monitored moderate conscious sedation was provided for this procedure with continued monitoring of pa tient consciousness and physiologic status provided by interventional radiology nurse throughout the procedure and documented. Patient was placed supine on the angiographic table. Ultrasound evaluation of the left radial artery demonstrated the artery to be patent. Single image was obtained and placed in PACS archive. Micropunc ture needle was advanced into the left radial artery under direct ultrasound guidance and subsequentl y exchanged for a slim 5 Mosotho sheath. The 4 Mosotho Panchito catheter was then advanced into the celiac artery. Microcatheter was then advanced into the origin of the intermediate hepatic artery and angio graphy was performed. This confirmed the position and patency of the artery. The SIR-spheres acrylic delivery box (V-vial) and delivery set were prepped in standard fashion. The labels on the tubing and needles corresponding to powder cutting operator's designations. The dose of SIR-sphere s to be delivered was determined by taking into account the patient's body surface area, tumor burden , liver function test, tumor burden, performance status, and lung shunting. Next, multiple small aliq uots of SIR-spheres were delivered intra-arterially to the hepatic masses with close fluoroscopic mon itoring to ensure forward flow in the vessel during the administration of the microspheres. Followup angiogram demonstrated persistent forward flow. Next, the microcatheter was then removed from the sheath, and catheter tip grasped with multiple laye rs of sterile gauze. The microcatheter, V- vial, and all the tubing and needles associated with the d elivery set were placed into a container provided by radiation safety. New microcatheter was then advanced into the origin of the right hepatic artery and angiography was p erformed. This confirmed the position and patency of the artery. The SIR-spheres acrylic delivery box (V-vial) and delivery set were prepped in standard fashion. The labels on the tubing and needles corresponding to powder cutting operator's designations. The dose of SIR-sphere s to be delivered was determined by taking into account the patient's body surface area, tumor burden , liver function test, tumor burden, performance status, and lung shunting. Next, multiple small aliq uots of SIR-spheres were delivered intra-arterially to the hepatic masses with close fluoroscopic mon itoring to ensure forward flow in the vessel during the administration of the microspheres. Followup angiogram demonstrated persistent forward flow. Next, the microcatheter was withdrawn into the angiographic catheter, which was then removed from the sheath, and catheter tip grasped with multiple layers of sterile gauze. The angiographic catheter, m icrocatheter, V- vial, and all the tubing and needles associated with the delivery set were placed in to a container provided by radiation safety. Hemostasis was then obtained by placement of a radial compression device. Patient tolerated the proce dure well. FINDINGS: There was successful delivery of the radioactive microspheres to the hepatic arteries. The microcathe ter was positioned in the hepatic artery during the delivery of the microspheres. Throughout the proc edure, antegrade flow is maintained. No reflux was demonstrated fluoroscopically. Visually, entire do se within the V-vial was delivered to the patient. No leaks or spills of the radioactive material whe re identified during or after the procedure. CONCLUSION: 1. Technically successful Y-90 radioembolization of the right hepatic arteries, as above. Red Mejia MD on November 06, 2017 at 16:25 Board Certified Radiologist. This report was verified electronically.
--- NOTE | 2017-11-06 16:37 | RADRPT ---
EXAM DATE/TIME: 11/06/2017 12:42 [facility] COMPARISON: PRIOR BONE SCANS: Correlative bone scan(s) available for comparison;10/14/17. INDICATIONS : Colon cancer with metastasis to liver. DOSE: 39.2 mCi Yttrium-90 Intraarterial MEDICAL HISTORY : Carcinoma, colon. Hypertension. SURGICAL HISTORY : Colostomy. ENCOUNTER: Subsequent ACUITY: 2 months PAIN SCALE: 3/10 LOCATION: Right upper quadrant COMPARISON: BREMSSTRAHLUNG Y-90 SCAN, October 14, 2017, 12:52. No previous studies obtainable fo r comparison. FINDINGS: Immediate post procedure bremsstrahlung scan was performed. Right and intermediate hepatic artery inj ected activity is confined to the right lobe of the liver. No evidence for extrahepatic activity is n oted. No significant lung uptake. CONCLUSION: 1. Right hepatic artery Yttrium-90 injection confined to the right lobe liver. No extrahepatic or sig nificant lung activity. Red Mejia MD on November 06, 2017 at 16:32 Board Certified Radiologist. This report was verified electronically.
== END 2017-11-06 16:35 | disposition home or self-care (01) ==
LOC: HROP 06:42 → HRIP 06:46 → HROP 16:35
PROVIDERS: ATTEND Specialist
DX: C78.7 Secondary malignant neoplasm of liver and intrahepatic bile duct (principal); C18.9 Malignant neoplasm of colon, unspecified; I12.9 Hypertensive chronic kidney disease with stage 1 through stage 4 chronic kidney disease, or unspecified chronic kidney disease; N18.9 Chronic kidney disease, unspecified; E03.9 Hypothyroidism, unspecified; Z92.21 Personal history of antineoplastic chemotherapy; Z85.528 Personal history of other malignant neoplasm of kidney
CPT/HCPCS: 36247; 36248; 37243; 75726; 75774; 76937; 77300; 77370; 77470; 78201; 79445; 80053; 85025; 85610; 85730; 99152; 99153; C1769; C1887; C1894; C2616; C9113; J1100; J2250; J2405; J3010; J7030; 77790